=== PATIENT | male | born 1950 | race African-American/Black ===

== ENCOUNTER 2021-06-24 11:29 | Inpatient (IN) ==
[2021-06-24 12:42] LABS: Basophils # 0.1 K/mcL (0.0-0.2); Basophils % 0.5 %; Hematocrit 53.8 % (37.5-50.1); Hemoglobin 17.6 g/dL (12.9-16.9); Immature Granulocytes % 1.9 % (0-4); Lymphocytes # 1.1 K/mcL (0.6-4.6); Lymphocytes % 9.4 %; Mean Corpuscular HGB Conc 32.7 g/dL (31.6-35.5); Mean Corpuscular Hemoglobin 26.4 pg (28.0-33.3); Mean Corpuscular Volume 80.7 fL (83.0-100.0); Mean Platelet Volume 9.8 fL (9.4-12.4); Monocytes # 0.9 K/mcL (0.0-1.3); Monocytes % 7.8 %; Neutrophils # 9.3 K/mcL (1.6-8.9); Platelet Count 209 K/mcL (140-400); Red Blood Count 6.67 M/mcL (4.19-5.50); Red Cell Distribution Width 19.9 % (11.5-14.5); Segmented Neutrophils % 80.4 %; White Blood Count 11.6 K/mcL (4.3-11.1)
[2021-06-24 12:51] LABS: INR 1.7; Prothrombin Time 18.9 Seconds (9.4-12.1)
[2021-06-24 12:54] LABS: Activated Partial Thrombo Time 30.2 Seconds (26.0-36.0)
[2021-06-24 13:07] LABS: Troponin I 0.11 ng/mL (< 0.04)
[2021-06-24 13:29] LABS: Albumin 3.6 g/dL (3.5-5.7); Calcium 9.7 mg/dL (8.6-10.3); Potassium 4.9 mEq/L (3.5-5.1)
[2021-06-24] MEDS ORDERED: Isovue-370 500 ML BOTTLE IVP ONE (13:35)
[2021-06-24 13:42] LABS: Albumin/Globulin Ratio 0.9 (1.1-2.2); Globulin 4.2 g/dL (2.4-3.5); Total Protein 7.8 g/dL (6.4-8.9)
[2021-06-24 13:46] LABS: Influenza A PCR Negative (Negative); Influenza B PCR Negative (Negative); Resp. Syncytial Virus PCR Negative (Negative); SARS-CoV-2 by PCR (In House) Negative (Negative)
[2021-06-24 13:59] LABS: Bilirubin,Direct 1.2 mg/dL (0.0-0.2); Bilirubin,Indirect 2.8 mg/dL (0.0-1.0)
[2021-06-24] MEDS ORDERED: Furosemide 40 MG/4 ML VIAL IVP ONE (15:18)
[2021-06-24] MEDS ORDERED: *HR* Heparin 5,000 UNIT/ML VIAL IVP ONE (15:19)
[2021-06-24] MEDS ORDERED: *HR* Heparin 5,000 UNIT/ML VIAL IVP PRN (15:19)
[2021-06-24] MEDS: Heparin 25,000UNIT/250ML 1/2NS 25,000 UNIT/250 ML IV.SOLN IVC SCH (16:34)
[2021-06-24] MEDS ORDERED: Ondansetron 4 MG/2 ML VIAL IVP PRN (16:35)
[2021-06-24] MEDS ORDERED: Naloxone 0.4 MG/ML INJ IVP PRN (16:35)
[2021-06-24] MEDS ORDERED: Melatonin 3 MG TABLET PO PRN (16:35)
[2021-06-24] MEDS ORDERED: Acetaminophen 325 MG TABLET PO PRN (18:43)
[2021-06-24] MEDS ORDERED: Perflutren Lipid Microsphere 1.3 ML in 0.9 % Sodium Chloride 8.7 ML IVP PRN (18:44)
[2021-06-24] MEDS: carvediloL 6.25 MG TABLET PO SCH (20:19)
[2021-06-25 05:23] LABS: Basophils % 0.4 %; Eosinophils % 0.1 %; Hematocrit 47.5 % (37.5-50.1); Immature Granulocytes % 1.9 % (0-4); Lymphocytes # 1.5 K/mcL (0.6-4.6); Lymphocytes % 13.7 %; Mean Corpuscular HGB Conc 32.6 g/dL (31.6-35.5); Mean Corpuscular Volume 79.7 fL (83.0-100.0); Mean Platelet Volume 10.3 fL (9.4-12.4); Monocytes # 1.1 K/mcL (0.0-1.3); Monocytes % 10.2 %; Platelet Count 187 K/mcL (140-400); Red Blood Count 5.96 M/mcL (4.19-5.50); Segmented Neutrophils % 73.7 %; White Blood Count 10.9 K/mcL (4.3-11.1)
[2021-06-25 05:29] LABS: Hemoglobin 15.5 g/dL (12.9-16.9)
[2021-06-25 05:47] LABS: Calcium 8.8 mg/dL (8.6-10.3); Potassium 4.8 mEq/L (3.5-5.1)
[2021-06-25] MEDS: *HR* Heparin 5,000 UNIT/ML VIAL IVP PRN ×2 (05:59→13:41)
[2021-06-25] MEDS: Furosemide 40 MG/4 ML VIAL IVP SCH (09:55)
[2021-06-25] MEDS: Heparin 25,000UNIT/250ML 1/2NS 25,000 UNIT/250 ML IV.SOLN IVC SCH ×2 (10:05→23:12)
[2021-06-25] MEDS: carvediloL 6.25 MG TABLET PO SCH ×2 (12:52→18:33)
[2021-06-25 13:03] LABS: Albumin/Globulin Ratio 0.8 (1.1-2.2); Bilirubin,Indirect 2.3 mg/dL (0.0-1.0); Bilirubin,Total 3.3 mg/dL (0.3-1.0); Globulin 3.6 g/dL (2.4-3.5); Total Protein 6.6 g/dL (6.4-8.9)
[2021-06-25 13:38] LABS: Hepatitis B Surface Antigen Nonreactive (Nonreactive)
[2021-06-25 14:06] LABS: Hepatitis B Core IgM Nonreactive (Nonreactive)
[2021-06-25 14:07] LABS: Hepatitis C Virus Antibody Nonreactive (Nonreactive)
[2021-06-25 14:08] LABS: Hepatitis A Antibody IgM Nonreactive (Nonreactive)
[2021-06-25 16:20] LABS: Bacteria,Urine Few per hpf (None-Few); Bilirubin,Urine Negative (Negative); Blood,Urine Negative (Negative); Clarity,Urine Turbid (Clear); Color,Urine Yellow (Yellow); Glucose,Urine (UA) Normal (Normal); Hyaline Casts,Urine Many per lpf (None Seen); Ketones,Urine Negative (Negative); Leukocyte Esterase,Urine Negative (Negative); Mucus,Urine Few per lpf (None-Few); Nitrite,Urine Negative (Negative); PH,Urine 5.5 pH Units (5.0-8.0); Protein,Urine Trace mg/dL (Neg-Trace); RBC,Urine 0-3 per hpf (0-3); Specific Gravity,Urine 1.015 (1.010-1.025); Squamous Epithelial Cell,Urine Few per hpf (None-Few); Urobilinogen,Urine Normal (Normal); WBC,Urine 0-3 per hpf (0-3)
[2021-06-25 16:32] LABS: Protein/Creatinine Ratio,Urine 0.17 mg/mg (0.00-0.20); Sodium, Urine 63.5 mEq/L
[2021-06-26 02:11] LABS: Basophils % 0.4 %; Eosinophils # 0.1 K/mcL (0.0-0.6); Eosinophils % 0.5 %; Hematocrit 45.6 % (37.5-50.1); Hemoglobin 15.3 g/dL (12.9-16.9); Immature Granulocytes % 1.9 % (0-4); Lymphocytes # 1.5 K/mcL (0.6-4.6); Lymphocytes % 12.9 %; Mean Corpuscular HGB Conc 33.6 g/dL (31.6-35.5); Mean Corpuscular Hemoglobin 26.5 pg (28.0-33.3); Mean Corpuscular Volume 78.9 fL (83.0-100.0); Mean Platelet Volume 10.8 fL (9.4-12.4); Monocytes % 9.2 %; Neutrophils # 8.5 K/mcL (1.6-8.9); Platelet Count 183 K/mcL (140-400); Red Blood Count 5.78 M/mcL (4.19-5.50); Red Cell Distribution Width 18.6 % (11.5-14.5); Segmented Neutrophils % 75.1 %; White Blood Count 11.2 K/mcL (4.3-11.1)
[2021-06-26 02:43] LABS: Calcium 8.8 mg/dL (8.6-10.3); Potassium 4.4 mEq/L (3.5-5.1)
[2021-06-26] MEDS: Furosemide 40 MG/4 ML VIAL IVP SCH (08:33)
[2021-06-26] MEDS: carvediloL 6.25 MG TABLET PO SCH ×2 (08:34→16:29)
[2021-06-26] MEDS: Heparin 25,000UNIT/250ML 1/2NS 25,000 UNIT/250 ML IV.SOLN IVC SCH ×2 (12:03→21:15)
[2021-06-27 02:20] LABS: Basophils % 0.3 %; Eosinophils # 0.1 K/mcL (0.0-0.6); Eosinophils % 0.5 %; Hematocrit 45.6 % (37.5-50.1); Hemoglobin 15.4 g/dL (12.9-16.9); Immature Granulocytes % 1.7 % (0-4); Lymphocytes # 1.5 K/mcL (0.6-4.6); Lymphocytes % 10.2 %; Mean Corpuscular HGB Conc 33.8 g/dL (31.6-35.5); Mean Corpuscular Hemoglobin 26.4 pg (28.0-33.3); Mean Corpuscular Volume 78.1 fL (83.0-100.0); Mean Platelet Volume 10.8 fL (9.4-12.4); Monocytes # 1.2 K/mcL (0.0-1.3); Monocytes % 8.7 %; Neutrophils # 11.3 K/mcL (1.6-8.9); Platelet Count 183 K/mcL (140-400); Red Blood Count 5.84 M/mcL (4.19-5.50); Red Cell Distribution Width 18.6 % (11.5-14.5); Segmented Neutrophils % 78.6 %; White Blood Count 14.3 K/mcL (4.3-11.1)
[2021-06-27 02:35] LABS: Calcium 8.4 mg/dL (8.6-10.3); Potassium 4.6 mEq/L (3.5-5.1)
[2021-06-27] MEDS: Aspirin Enteric Coated 81 MG Tablet PO SCH (08:49)
[2021-06-27] MEDS: carvediloL 6.25 MG TABLET PO SCH ×2 (08:49→16:49)
[2021-06-27] MEDS: Furosemide 40 MG/4 ML VIAL IVP SCH (08:49)
[2021-06-27] MEDS: Azithromycin 250 MG TABLET PO SCH (10:43)
[2021-06-27] MEDS: cefTRIAXone 1,000 MG in 0.9 % Sodium Chloride 10 ML IVP SCH (10:43)
[2021-06-27 11:15] LABS: Prostate Specific Antigen 9.25 ng/mL (Less than 4.00)
[2021-06-28] MEDS: Heparin 25,000UNIT/250ML 1/2NS 25,000 UNIT/250 ML IV.SOLN IVC SCH ×3 (01:05→23:41)
[2021-06-28 03:16] LABS: Basophils # 0.1 K/mcL (0.0-0.2); Basophils % 0.8 %; Eosinophils # 0.1 K/mcL (0.0-0.6); Eosinophils % 0.7 %; Hematocrit 45.7 % (37.5-50.1); Immature Granulocytes % 2.3 % (0-4); Lymphocytes # 1.5 K/mcL (0.6-4.6); Lymphocytes % 13.7 %; Mean Corpuscular HGB Conc 32.8 g/dL (31.6-35.5); Mean Corpuscular Hemoglobin 25.9 pg (28.0-33.3); Mean Corpuscular Volume 78.8 fL (83.0-100.0); Mean Platelet Volume 10.6 fL (9.4-12.4); Monocytes # 0.8 K/mcL (0.0-1.3); Monocytes % 7.9 %; Platelet Count 181 K/mcL (140-400); Red Cell Distribution Width 18.6 % (11.5-14.5); Segmented Neutrophils % 74.6 %; White Blood Count 10.7 K/mcL (4.3-11.1)
[2021-06-28 03:23] LABS: BUN/Creatinine Ratio 27 (6-26); Blood Urea Nitrogen 34 mg/dL (8-23); Calcium 8.5 mg/dL (8.6-10.3); Carbon Dioxide 26 mEq/L (23-29); Chloride 97 mEq/L (98-107); Glucose 143 mg/dL (70-105); Osmolality,Calculated 280 (280-300); Potassium 4.1 mEq/L (3.5-5.1); Sodium 130 mEq/L (136-145); eGFR For African Americans > 60 (> 60); eGFR For Non-African Americans 56 (> 60)
[2021-06-28] MEDS: *HR* Heparin 5,000 UNIT/ML VIAL IVP PRN (03:38)
[2021-06-28] MEDS: carvediloL 6.25 MG TABLET PO SCH ×2 (07:52→17:52)
[2021-06-28] MEDS: Aspirin Enteric Coated 81 MG Tablet PO SCH (07:53)
[2021-06-28] MEDS: Furosemide 40 MG/4 ML VIAL IVP SCH (07:53)
[2021-06-28] MEDS: cefTRIAXone 1,000 MG in 0.9 % Sodium Chloride 10 ML IVP SCH (07:53)
[2021-06-28] MEDS: Azithromycin 250 MG TABLET PO SCH (07:53)
[2021-06-29 08:28] LABS: Basophils # 0.1 K/mcL (0.0-0.2); Basophils % 0.8 %; Eosinophils # 0.2 K/mcL (0.0-0.6); Eosinophils % 1.6 %; Hematocrit 44.9 % (37.5-50.1); Hemoglobin 14.4 g/dL (12.9-16.9); Lymphocytes # 1.5 K/mcL (0.6-4.6); Lymphocytes % 14.4 %; Mean Corpuscular HGB Conc 32.1 g/dL (31.6-35.5); Mean Corpuscular Hemoglobin 25.9 pg (28.0-33.3); Mean Corpuscular Volume 80.6 fL (83.0-100.0); Mean Platelet Volume 10.5 fL (9.4-12.4); Monocytes # 1.1 K/mcL (0.0-1.3); Neutrophils # 7.2 K/mcL (1.6-8.9); Platelet Count 175 K/mcL (140-400); Red Blood Count 5.57 M/mcL (4.19-5.50); Red Cell Distribution Width 18.6 % (11.5-14.5); Segmented Neutrophils % 69.2 %; White Blood Count 10.4 K/mcL (4.3-11.1)
[2021-06-29 08:38] LABS: BUN/Creatinine Ratio 25 (6-26); Blood Urea Nitrogen 31 mg/dL (8-23); Calcium 8.5 mg/dL (8.6-10.3); Carbon Dioxide 27 mEq/L (23-29); Chloride 98 mEq/L (98-107); Glucose 139 mg/dL (70-105); Osmolality,Calculated 281 (280-300); Potassium 4.1 mEq/L (3.5-5.1); Sodium 131 mEq/L (136-145); eGFR For African Americans > 60 (> 60); eGFR For Non-African Americans 59 (> 60)
[2021-06-29] MEDS: Furosemide 40 MG TABLET PO SCH (09:20)
[2021-06-29] MEDS: Azithromycin 250 MG TABLET PO SCH (09:20)
[2021-06-29] MEDS: carvediloL 6.25 MG TABLET PO SCH ×2 (09:20→18:38)
[2021-06-29] MEDS: Aspirin Enteric Coated 81 MG Tablet PO SCH (09:21)
[2021-06-29] MEDS: cefTRIAXone 1,000 MG in 0.9 % Sodium Chloride 10 ML IVP SCH (09:21)
[2021-06-29] MEDS: Heparin 25,000UNIT/250ML 1/2NS 25,000 UNIT/250 ML IV.SOLN IVC SCH (11:09)
[2021-06-29] MEDS ORDERED: 0.9 % Sodium Chloride 1,000 ML ONE ×2 (16:15→16:23)
[2021-06-29] MEDS ORDERED: *HR* Midazolam HCl 2 MG/2 ML VIAL ONE (16:15)
[2021-06-29] MEDS ORDERED: *HR* FentaNYL (PF) 100 MCG/2 ML VIAL ONE (16:15)
[2021-06-29] MEDS ORDERED: *HR* Heparin 10,000 UNIT/10 ML VIAL ONE (16:16)
[2021-06-29] MEDS ORDERED: Nitroglycerin 1,000 MCG/5 ML VIAL IV ONE (16:16)
[2021-06-29] MEDS ORDERED: ISOVUE-370 200 ML INFUS..BTL ONE (16:16)
[2021-06-29] MEDS ORDERED: Heparin 1,000 UNITS/500 mL 500 ML ONE (16:16)
[2021-06-30] MEDS: Heparin 25,000UNIT/250ML 1/2NS 25,000 UNIT/250 ML IV.SOLN IVC SCH (01:29)
[2021-06-30 05:38] LABS: Basophils # 0.1 K/mcL (0.0-0.2); Basophils % 0.8 %; Eosinophils # 0.3 K/mcL (0.0-0.6); Eosinophils % 2.5 %; Hematocrit 46.5 % (37.5-50.1); Hemoglobin 15.1 g/dL (12.9-16.9); Immature Granulocytes % 2.5 % (0-4); Lymphocytes # 1.4 K/mcL (0.6-4.6); Lymphocytes % 12.7 %; Mean Corpuscular HGB Conc 32.5 g/dL (31.6-35.5); Mean Corpuscular Hemoglobin 26.1 pg (28.0-33.3); Mean Corpuscular Volume 80.4 fL (83.0-100.0); Mean Platelet Volume 11.2 fL (9.4-12.4); Monocytes % 9.2 %; Neutrophils # 7.7 K/mcL (1.6-8.9); Platelet Count 216 K/mcL (140-400); Red Blood Count 5.78 M/mcL (4.19-5.50); Red Cell Distribution Width 19.2 % (11.5-14.5); Segmented Neutrophils % 72.3 %; White Blood Count 10.6 K/mcL (4.3-11.1)
[2021-06-30 06:01] LABS: BUN/Creatinine Ratio 23 (6-26); Blood Urea Nitrogen 27 mg/dL (8-23); Calcium 8.8 mg/dL (8.6-10.3); Carbon Dioxide 27 mEq/L (23-29); Chloride 99 mEq/L (98-107); Glucose 97 mg/dL (70-105); Osmolality,Calculated 283 (280-300); Potassium 4.1 mEq/L (3.5-5.1); Sodium 134 mEq/L (136-145); eGFR For African Americans > 60 (> 60); eGFR For Non-African Americans 60 (> 60)
[2021-06-30] MEDS: Azithromycin 250 MG TABLET PO SCH (07:37)
[2021-06-30] MEDS: Aspirin Enteric Coated 81 MG Tablet PO SCH (07:37)
[2021-06-30] MEDS: carvediloL 6.25 MG TABLET PO SCH (07:37)
[2021-06-30] MEDS: cefTRIAXone 1,000 MG in 0.9 % Sodium Chloride 10 ML IVP SCH (07:38)
[2021-06-30] MEDS: Furosemide 40 MG TABLET PO SCH (07:44)
[2021-06-30] MEDS: Apixaban 5 MG TABLET PO SCH ×2 (09:43→21:08)
[2021-06-30 11:34] LABS: Magnesium 1.8 mg/dL (1.6-2.6)
[2021-06-30] MEDS ORDERED: lisinopriL 5 MG TABLET PO SCH (13:15)
[2021-06-30] MEDS: Magnesium Oxide 400 MG TABLET PO SCH (16:09)
[2021-06-30] MEDS ORDERED: *HR* Metoprolol 5 MG/5 ML VIAL IVP STA (18:40)
[2021-06-30] MEDS ORDERED: Metoprolol XL (24 HR) Succ 25 MG TAB.ER.24H PO SCH (21:00)
[2021-07-01 07:48] LABS: Basophils # 0.1 K/mcL (0.0-0.2); Basophils % 0.6 %; Eosinophils # 0.2 K/mcL (0.0-0.6); Eosinophils % 2.8 %; Hematocrit 45.1 % (37.5-50.1); Hemoglobin 14.6 g/dL (12.9-16.9); Immature Granulocytes % 2.9 % (0-4); Lymphocytes # 1.3 K/mcL (0.6-4.6); Lymphocytes % 16.1 %; Mean Corpuscular HGB Conc 32.4 g/dL (31.6-35.5); Mean Corpuscular Hemoglobin 26.2 pg (28.0-33.3); Mean Corpuscular Volume 80.8 fL (83.0-100.0); Mean Platelet Volume 10.6 fL (9.4-12.4); Monocytes # 0.8 K/mcL (0.0-1.3); Monocytes % 9.9 %; Neutrophils # 5.6 K/mcL (1.6-8.9); Platelet Count 204 K/mcL (140-400); Red Blood Count 5.58 M/mcL (4.19-5.50); Red Cell Distribution Width 19.1 % (11.5-14.5); Segmented Neutrophils % 67.7 %; White Blood Count 8.2 K/mcL (4.3-11.1)
[2021-07-01 08:08] LABS: BUN/Creatinine Ratio 22 (6-26); Blood Urea Nitrogen 21 mg/dL (8-23); Calcium 8.5 mg/dL (8.6-10.3); Carbon Dioxide 27 mEq/L (23-29); Chloride 99 mEq/L (98-107); Glucose 125 mg/dL (70-105); Osmolality,Calculated 280 (280-300); Potassium 4.1 mEq/L (3.5-5.1); Sodium 133 mEq/L (136-145); eGFR For African Americans > 60 (> 60); eGFR For Non-African Americans > 60 (> 60)
[2021-07-01] MEDS: Apixaban 5 MG TABLET PO SCH ×2 (10:14→22:09)
[2021-07-01] MEDS: Azithromycin 250 MG TABLET PO SCH (10:14)
[2021-07-01] MEDS: Magnesium Oxide 400 MG TABLET PO SCH (10:15)
[2021-07-01] MEDS: cefTRIAXone 1,000 MG in 0.9 % Sodium Chloride 10 ML IVP SCH (10:15)
[2021-07-01] MEDS: Furosemide 40 MG TABLET PO SCH (10:15)
[2021-07-01] MEDS: Metoprolol XL (24 HR) Succ 25 MG TAB.ER.24H PO SCH ×2 (10:15→22:09)
[2021-07-01] MEDS ORDERED: *HR* Metoprolol 5 MG/5 ML VIAL IVP ONE (18:31)
[2021-07-02 05:48] LABS: Basophils # 0.1 K/mcL (0.0-0.2); Basophils % 0.8 %; Eosinophils # 0.4 K/mcL (0.0-0.6); Eosinophils % 3.9 %; Hematocrit 50.2 % (37.5-50.1); Hemoglobin 15.9 g/dL (12.9-16.9); Immature Granulocytes % 1.9 % (0-4); Lymphocytes # 2.3 K/mcL (0.6-4.6); Mean Corpuscular HGB Conc 31.7 g/dL (31.6-35.5); Mean Corpuscular Hemoglobin 25.9 pg (28.0-33.3); Mean Corpuscular Volume 81.6 fL (83.0-100.0); Mean Platelet Volume 10.7 fL (9.4-12.4); Monocytes # 1.2 K/mcL (0.0-1.3); Monocytes % 12.3 %; Neutrophils # 5.6 K/mcL (1.6-8.9); Platelet Count 226 K/mcL (140-400); Red Blood Count 6.15 M/mcL (4.19-5.50); Red Cell Distribution Width 19.6 % (11.5-14.5); Segmented Neutrophils % 57.1 %; White Blood Count 9.8 K/mcL (4.3-11.1)
[2021-07-02] MEDS ORDERED: lisinopriL 5 MG TABLET PO SCH (09:00)
[2021-07-02 09:29] LABS: BUN/Creatinine Ratio 16 (6-26); Blood Urea Nitrogen 18 mg/dL (8-23); Calcium 8.9 mg/dL (8.6-10.3); Carbon Dioxide 28 mEq/L (23-29); Chloride 97 mEq/L (98-107); Glucose 107 mg/dL (70-105); Osmolality,Calculated 280 (280-300); Potassium 4.5 mEq/L (3.5-5.1); Sodium 134 mEq/L (136-145); eGFR For African Americans > 60 (> 60); eGFR For Non-African Americans > 60 (> 60)
[2021-07-02] MEDS ORDERED: Furosemide 20 MG/2 ML VIAL IVP ONE ×2 (09:54→15:35)
[2021-07-02] MEDS ORDERED: Spironolactone 25 MG TABLET PO SCH (11:15)
[2021-07-02 11:19] VITALS: TEMP 98.4; O2SAT 98
[2021-07-02] MEDS: Apixaban 5 MG TABLET PO SCH (11:21)
[2021-07-02] MEDS: Metoprolol XL (24 HR) Succ 25 MG TAB.ER.24H PO SCH (11:21)
[2021-07-02] MEDS: cefTRIAXone 1,000 MG in 0.9 % Sodium Chloride 10 ML IVP SCH (11:22)
[2021-07-02] MEDS: Furosemide 40 MG TABLET PO SCH (11:23)
[2021-07-02] MEDS: Magnesium Oxide 400 MG TABLET PO SCH (11:23)
[2021-07-02] MEDS: Azithromycin 250 MG TABLET PO SCH (11:23)
[2021-07-02 12:01] VITALS: BP 142/110; PULSE 104
[2021-07-07] MEDS ORDERED: Apixaban 5 MG TABLET PO SCH (09:00)
== END 2021-07-02 19:00 | disposition home or self-care (01) | DRG 280 ==
LOC: 3NENU 11:29 → EMEROOARM 11:29 → SUATTDRO 16:59 → 3NENU 18:11 → SUATTDRO 06-25 15:03
PROVIDERS: ADMIT Internal Medicine; ATTEND Family Medicine